=== PATIENT | female | born 1995 | race Caucasian/White ===

== ENCOUNTER 2016-02-24 11:41 | Outpatient (CLI) | payer OTHER ==
[~2016-02-24] VITALS: Ht 162.6 cm; Wt 116.1 kg
[~2016-02-24 11:41] MED LIST: ADDERALL30 MG PO; ATARAX,VISTARIL25 MG PO; EPIPEN ADU0.3 MG/0.3 IM; KEFLEX500 MG PO; ORTHO TRI-CYCL1 EACH PO; PREDNISONE20 MG PO; ZANTAC300 MG PO
[2016-02-24 12:23] VITALS: BP 132/77
[2016-02-24 13:28] VITALS: BP 132/79
[2016-02-24 14:51] VITALS: BP 119/62
[2016-02-25] MEDS ORDERED: PRENATAL TABLE1 EAC3 PO (05:17)
== END 2016-02-24 15:30 | disposition home or self-care (01) ==
LOC: LDRP-OP 11:41 → 2WEST 11:42 → LDRP-OP 03-25 02:52
DX: O47.1 False labor at or after 37 completed weeks of gestation (principal); O99.89 Other specified diseases and conditions complicating pregnancy, childbirth and the puerperium; Z3A.40 40 weeks gestation of pregnancy
CPT/HCPCS: 59025; G0378; J7120

== ENCOUNTER 2016-02-25 04:11 | Inpatient (IN) | payer OTHER ==
[2016-02-25] VITALS (30 sets, daily range): BP systolic 82–149; BP diastolic 42–89
[~2016-02-25] VITALS: Ht 162.6 cm; Wt 116.3 kg
[2016-02-25] MEDS ORDERED: PRENATAL TABLE1 EAC3 PO (05:17)
[2016-02-25 05:47] LABS: EOSINOPHIL (%) 0.2 % (0-5); HEMATOCRIT 45.3 % (36.0-46.0); IMMATURE GRANULOCYTE (%) 0.5 % (0.0-0.7); IMMATURE GRANULOCYTE COUNT 0.1 K/uL; LYMPHOCYTE COUNT 1.5 K/uL (1.0-2.8); MCH 31.3 PG (29.0-34.0); MCHC 35.1 G/DL (30.0-36.0); MCV 89.2 FL (83-99); MEAN PLAT.VOLUME 12.7 uM^3 (9.5-12.4); MONOCYTE (%) 6.8 % (3-12); NEUTROPHIL (%) 82.6 % (45-76); NEUTROPHIL COUNT 12.3 K/uL (1.8-6.4); PLATELET COUNT 200 K/uL (156-360); RBC DIS.WIDTH-CV 12.8 % (11.8-14.6); RBC DIS.WIDTH-SD 41.2 % (39-53); RED BLOOD COUNT 5.08 M/uL (3.80-5.20); WHITE BLOOD COUNT 14.9 K/uL (4.1-10.2)
[2016-02-26 07:26] VITALS: BP 128/70
[2016-02-26 08:07] LABS: EOSINOPHIL (%) 0.4 % (0-5); EOSINOPHIL COUNT 0.1 K/uL (0-0.3); HEMATOCRIT 38.7 % (36.0-46.0); IMMATURE GRANULOCYTE (%) 0.7 % (0.0-0.7); IMMATURE GRANULOCYTE COUNT 0.1 K/uL; LYMPHOCYTE COUNT 2.6 K/uL (1.0-2.8); MCH 30.9 PG (29.0-34.0); MCHC 34.1 G/DL (30.0-36.0); MCV 90.6 FL (83-99); MEAN PLAT.VOLUME 12.3 uM^3 (9.5-12.4); MONOCYTE (%) 8.6 % (3-12); MONOCYTE COUNT 1.4 K/uL (0-0.8); NEUTROPHIL (%) 74.2 % (45-76); NEUTROPHIL COUNT 12.1 K/uL (1.8-6.4); PLATELET COUNT 146 K/uL (156-360); RBC DIS.WIDTH-CV 13.1 % (11.8-14.6); RBC DIS.WIDTH-SD 42.5 % (39-53); RED BLOOD COUNT 4.27 M/uL (3.80-5.20); WHITE BLOOD COUNT 16.2 K/uL (4.1-10.2)
[2016-02-26 15:11] VITALS: BP 137/80
[2016-02-26 23:40] VITALS: BP 132/70
[2016-02-27 07:45] VITALS: BP 129/65
[2016-02-27] MEDS ORDERED: IBUPROFEN800 MG PO (12:30)
[2016-02-27] MEDS ORDERED: DOCUSATE SODIU100 MG PO (12:30)
[2016-02-27] MEDS ORDERED: XULANE PATCH1 EACH TD (12:35)
[2016-02-27 15:43] VITALS: BP 144/77
== END 2016-02-27 17:56 | disposition home or self-care (01) | DRG 775 ==
LOC: LDRP-OP 04:11 → 2WEST 04:12 → LDRP-OP 03-25 22:18
PROVIDERS: Advanced Practice Midwife
PROC: 0DQR0ZZ Repair Anal Sphincter, Open Approach (ICD-10-PCS; principal; 2016-02-25)
PROC: 00HU33Z Insertion of Infusion Device into Spinal Canal, Percutaneous Approach (ICD-10-PCS; principal; 2016-02-25)
PROC: 3E0R3CZ (ICD-10-PCS; principal; 2016-02-25)
PROC: 10E0XZZ Delivery of Products of Conception, External Approach (ICD-10-PCS; principal; 2016-02-25)
DX: O48.0 Post-term pregnancy (principal); O71.4 Obstetric high vaginal laceration alone; O77.0 Labor and delivery complicated by meconium in amniotic fluid; O32.6XX0 Maternal care for compound presentation, not applicable or unspecified; O99.214 Obesity complicating childbirth; O99.344 Other mental disorders complicating childbirth; F32.9 Major depressive disorder, single episode, unspecified; Z37.0 Single live birth; Z3A.41 41 weeks gestation of pregnancy; E66.9 Obesity, unspecified
CPT/HCPCS: 59025; 85025; C1755; G0378; J2405; J2795; J3010; J7120

== ENCOUNTER 2016-04-25 08:47 | Day surgery (SDC) | payer OTHER ==
[~2016-04-25] VITALS: Ht 162.6 cm; Wt 108.8 kg
[~2016-04-25 08:47] MED LIST changes: +BIRTH CONTROL PO; +BUSPAR5 MG PO; +DOCUSATE SODIU100 MG PO; +FIORICET,ESG1 TABLET PO; +IBUPROFEN800 MG PO; +MOTRIN800 MG PO; +PRENATAL TABLE1 EAC3 PO; +XULANE PATCH1 EACH TD
[2016-04-25 09:18] LABS: HEMATOCRIT 44.4 % (36.0-46.0); MCH 30.2 PG (29.0-34.0); MCHC 33.8 G/DL (30.0-36.0); MCV 89.5 FL (83-99); MEAN PLAT.VOLUME 11.7 uM^3 (9.5-12.4); PLATELET COUNT 303 K/uL (156-360); RBC DIS.WIDTH-CV 11.7 % (11.8-14.6); RED BLOOD COUNT 4.96 M/uL (3.80-5.20); WHITE BLOOD COUNT 6.8 K/uL (4.1-10.2)
[2016-04-25 09:30] VITALS: BP 113/73
[2016-04-25] MEDS ORDERED: MOTRIN800 MG PO (11:41)
[2016-04-25] MEDS ORDERED: PERCOCET 5/31 TABLET PO (11:41)
[2016-04-25 12:31] VITALS: BP 130/60
[2016-04-25 13:18] VITALS: BP 113/64
== END 2016-04-25 13:25 | disposition home or self-care (01) ==
LOC: SDC 08:47
PROVIDERS: Obstetrics & Gynecology
PROC: 0HQ9XZZ Repair Perineum Skin, External Approach (ICD-10-PCS; principal; 2016-04-25)
DX: O90.1 Disruption of perineal obstetric wound (principal); Z91.040 Latex allergy status; Z91.018 Allergy to other foods
CPT/HCPCS: 84702; 85027; J0330; J0690; J1885; J2175; J2250; J2405; J3010

== ENCOUNTER 2016-12-23 13:40 | Emergency (ER) | payer OTHER ==
[~2016-12-23] VITALS: Ht 162.6 cm; Wt 97.4 kg
[~2016-12-23 13:40] MED LIST changes: +PERCOCET 5/31 TABLET PO
[2016-12-23 14:35] LABS: HEMATOCRIT 46.1 % (36.0-46.0); MCH 30.2 PG (29.0-34.0); MCHC 34.5 G/DL (30.0-36.0); MCV 87.5 FL (83-99); MEAN PLAT.VOLUME 11.5 uM^3 (9.5-12.4); PLATELET COUNT 242 K/uL (156-360); RBC DIS.WIDTH-CV 11.7 % (11.8-14.6); RBC DIS.WIDTH-SD 37.6 % (39-53); RED BLOOD COUNT 5.27 M/uL (3.80-5.20); WHITE BLOOD COUNT 6.6 K/uL (4.1-10.2)
[2016-12-23 14:44] LABS: ADD MIUA? YES; BILIRUBIN NEGATIVE; BLOOD NEGATIVE; COLOR YELLOW ((YELLOW)); GLUCOSE (STRIP) NEGATIVE; KETONES NEGATIVE; LEUKOCYTES MODERATE; NITRITE NEGATIVE; PROTEIN (STRIP) NEGATIVE; SPECIFIC GRAVITY 1.024 (1.000-1.030)
[2016-12-23 14:44] LABS: CHLORIDE 108 mEq/L (99-109); POTASSIUM 3.9 mEq/L (3.7-5.4); SODIUM 139 mEq/L (136-147)
[2016-12-23 14:46] LABS: GLUCOSE 83 mg/dL (70-99)
[2016-12-23 14:47] LABS: ANION GAP 8 MEQ/L (2-14)
[2016-12-23 14:48] LABS: TOTAL BILIRUBIN 0.4 mg/dL (0.0-1.0)
[2016-12-23 14:50] LABS: ALKALINE PHOSPHATASE 135 IU/L (3-129); GFR ESTIMATE (CALCULATED) > 59 mL/min/
[2016-12-23 14:51] LABS: UREA NITROGEN (BUN) 14 mg/dL (9-23)
[2016-12-23 14:58] LABS: QUANTITATIVE HCG < 4.0 MIU/ML
[2016-12-23 15:09] LABS: BACTERIA NONE SEEN /HPF; EPITHELIAL CELLS NONE SEEN /HPF; MUCUS NONE SEEN /LPF; RED BLOOD CELLS NONE SEEN /HPF (0-5); UCUL ADDED? NO; WHITE BLOOD CELLS NONE SEEN /HPF (0-5)
[2016-12-23 15:51] LABS: LIPASE 37 U/L (1.0-51.0)
[2016-12-23] MEDS ORDERED: MOTRIN800 MG PO (17:34)
[2016-12-23] MEDS ORDERED: ZOFRAN ODT4 MG PO (17:34)
[2016-12-23] MEDS ORDERED: BENTYL20 MG PO (18:14)
[2016-12-23 18:32] VITALS: BP 124/87
== END 2016-12-23 18:38 | disposition home or self-care (01) ==
LOC: EME 13:40
DX: R10.84 Generalized abdominal pain (principal); R11.0 Nausea; F90.9 Attention-deficit hyperactivity disorder, unspecified type; F32.9 Major depressive disorder, single episode, unspecified; F41.9 Anxiety disorder, unspecified; Z91.040 Latex allergy status
CPT/HCPCS: 74177; 80053; 81003; 83690; 84702; 85027; 87086; 99281; 99284; J1200; J1885; J2405; J7030

== ENCOUNTER 2017-03-30 01:28 | Emergency (ER) | payer OTHER ==
[~2017-03-30] VITALS: Ht 162.6 cm; Wt 95.0 kg
[~2017-03-30 01:28] MED LIST changes: +BENTYL20 MG PO; +ZOFRAN ODT4 MG PO
[2017-03-30] MEDS ORDERED: MEDROL DOSEPAK4 MG PO (02:24)
[2017-03-30 03:28] VITALS: BP 144/94
== END 2017-03-30 03:30 | disposition home or self-care (01) ==
LOC: EME 01:28
DX: S14.3XXA Injury of brachial plexus, initial encounter (principal); X50.0XXA Overexertion from strenuous movement or load, initial encounter; Y99.0 Civilian activity done for income or pay; Z91.040 Latex allergy status
CPT/HCPCS: 99281; 99284